=== PATIENT | female | born 1945 | race Caucasian/White ===

== ENCOUNTER 2018-03-20 12:14 | Emergency (ER) | payer OTHER, MEDICARE ==
[2018-03-20] MEDS ORDERED: SODIUM CHLORIDE 0.9% FLUSH 10 ML SOL IV PRN (12:25)
[2018-03-20] MEDS ORDERED: ASPIRIN 81 MG CHEWABLE CTB PO STA (12:25)
[2018-03-20] MEDS ORDERED: NITROGLYCERIN 0.4 MG TAB SL PRN (12:25)
[2018-03-20] MEDS ORDERED: ADENOSINE 3 MG/ML SOL IV ONE (12:27)
[2018-03-20] MEDS ORDERED: METOPROLOL TARTRATE 5 MG/5 ML SOL IV ONE ×2 (12:35→12:37)
[2018-03-20 12:39] LABS: BASOPHILS % (AUTO) 0 % (0-3); EOSINOPHILS % (AUTO) 0 % (0-9); HEMATOCRIT 42 % (35-47); HEMOGLOBIN 13.5 gm/dl (12.0-15.5); LYMPHOCYTES % (AUTO) 8.2 % (10-50); MEAN CORPUSCULAR HEMOGLOBIN 30.2 pg (27.0-32.0); MEAN CORPUSCULAR VOLUME 94 fL (81-99); MONOCYTES % (AUTO) 7.7 % (0-12); NEUTROPHILS % (AUTO) 83.4 % (37-80)
[2018-03-20 12:44] LABS: BLOOD UREA NITROGEN 14 mg/dl (7-18); CALCIUM 8.9 mg/dl (8.5-10.1); CARBON DIOXIDE 27.3 mEq/L (21-32); CHLORIDE 99 mMol/L (98-107); CREATINE KINASE 89 U/L (26-192); CREATININE 0.76 mg/dl (0.60-1.00); GLUCOSE 107 mg/dl (74-106); INR 0.95 (0.86-1.12); POTASSIUM 3.5 mMol/L (3.5-5.1); SODIUM 137 mMol/L (136-145); TROP I < 0.017 ng/ml (0.000-0.056)
[2018-03-20] MEDS ORDERED: ONDANSETRON HCL 4 MG/2 ML SOL IV ONE (13:02)
[2018-03-20] MEDS ORDERED: ONDANSETRON HCL 4 MG/2 ML SOL ONE (13:03)
[2018-03-20 13:09] VITALS: TEMP 98
[2018-03-20 14:21] VITALS: RESP 20
[2018-03-20 14:22] VITALS: BP 123/77; PULSE 102; O2SAT 96
== END 2018-03-20 13:40 | disposition home or self-care (01) | DRG 310 ==
LOC: ED 12:14
DX: I47.1 Supraventricular tachycardia (principal)
CPT/HCPCS: 36415; 71045; 80048; 82550; 84484; 85025; 85610; 85730; 93005; 96374; 99284; J0153; J2405; J3490